=== PATIENT | male | born 1985 | race Two or more races ===

== ENCOUNTER 2024-10-15 19:07 | Inpatient (IN) | payer MEDICAID, OTHER ==
[~2024-10-15] VITALS: Ht 165.1 cm; Wt 79.1 kg
--- NOTE | 2024-10-15 19:22 | ED.PDOC ---
HPI (NEURO) HPI Comments BENITA: HPI: Poor Historian. HPI: 49 F who presents to the ED via EMS for chief complaint of seizure like activity - EMS states pt is at rehab facility in [place] for ETOH and pt was outside in patio - EMS states other patients noted pt suddenly exhibit shaking like movements and fell to the floor - EMS was called but prior to ED arrival, staff notes pt has 2x seizure like episodes lasting approx 2-4 minutes - EMS notes pt was in post-ictal state upon arrival but no noted oral trauma or incontinence was noted - pt had vitals checked with noted vitals : BP, 175/102, heart rate 132, rr 12 and 02 sat of 92% on room air - pt states he has been at facility for 14 days and pt and staff states pt has not had drink in 2x days - pt then recanted his statement and told EMS staff that he has not had a drink in 14 days - pt states at facility, he has received no medications for his withdrawal - pt now in the ED, otherwise alert and oriented x 4 and denies any other symptoms - pt has noted vitals of heart rate of 110, BP 149/98 and 02 sat Past Medical history: anxiety, depression, Past Surgical history: appendectomy Medications: Social History: Denies smoking, ETOH, and drug use. Allergies: NKDA REVIEW OF SYSTEMS: CONSTITUTIONAL: Denies acute: fever, diaphoresis, chills, generalized weakness. HEAD: Denies acute: headache, photophobia Eyes: Denies acute: Double vision, vision loss, eye pain, eye discharge. EARS: Denies acute: tinnitus, hearing loss, ear discharge, ear pain, THROAT: Denies acute: sore throat, swelling, difficulty swallowing , pain with swallowing, change in voice. NECK: Denies acute: neck pain, neck swelling, stiff neck. HEART: Denies acute : chest pain, palpitations, LUNGS: Denies acute: SOB, wheezing, cough, hemoptysis ABDOMEN: Denies acute: abdominal pain, Nausea, Vomiting, diarrhea, melena , hematemesis, hematochezia SKIN: Denies acute: rash, redness, lesions, itchiness. EXTREMITIES: Denies acute: calf pain, numbness, tingling, weakness, denies pain in extremity. Denies acute: Low back pain. Neuro: Denies acute: focal neurological deficit, motor or sensory focal neurological deficit, loss of bowel or bladder function, cauda equina like symptoms. : Denies acute: dysuria, hematuria, flank pain, increase in urinary frequency. PSYCH: Denies acute: hallucination, suicidal ideation, homicidal ideation. PHYSICAL EXAM: General: ----no----acute distress, awake and alert. Head: normocephalic, atraumatic. Neck: supple, trachea is midline, no swelling. Cervical spine: Palpation of the posterior midline of the cervical spine reveals no focal swelling, erythema, focal tenderness to palpation. Patient has normal range of motion. Throat: Normal phonation. No oral trauma. No obstruction, no swelling, no erythema, Eyes:, no erythema, no purulent discharge, no proptosis, no icterus. Heart: regular rate, regular rhythm, no significant murmur appreciated. Lungs: no apparent respiratory distress, Able to speak in full sentences. No wheezing, no rhonchi, no crackles. No stridors Clear to auscultation bilaterally. Abdomen: non tender to palpation, non distended, soft, no guarding, no rebound, + bowel sounds. Neuro: Awake, Alert, oriented to name, self, situation, follows commands, slight resting tremors GCS=15. Speech is normal. Skin: no petechia, no purpura, no cyanosis, non-pale, not jaundice. Lower extremities: --no - Pitting edema no deformity, no focal swelling, no calf TTP. Makes eye contact. moves all four extremities. Face: no apparent facial droop. PERRLA, EOM-I CN 2-12 are grossly intact, No nystagmus. No nuchal rigidity, Kernig's sign, Brudzinski's sign, no meningeal signs. ED COURSE: DISCLAIMER: This medical document was created using an electronic medical record system with voice recognition software and computerized dictation system. Although this document has been carefully reviewed, there might still be some phonetic and typographical errors. Occasional wrong-word or "sound-alike" substitutions may have occurred due to the inherent limitations of voice recognition software. These areas are purely typographical due to imperfections of the software programs and do not reflect any compromise in the patient's medical care. Please read the chart carefully and recognize, using context, where these substitutions have occurred. Chief Complaint: Withdrawal Time Seen by MD: 19:12 Reviewed Notes: Medications, Allergies Information Source: Patient, Emergency Med Personnel Mode of Arrival: EMS Was a procedure done? Was a procedure done?: No Differential Diagnosis (SZ) Seizure: Other (SEIZUREDDX include not limited to CVA, cerebellar ischemia/infarct, carotid stenosis, vertebral/carotid artery dissection,, vertebrobasillary insufficiency, Intracranial mass/infection/bleed, encephalopathy, elctrolyte abnormality, thyroid disease, multiple sclerosis, hypoglycemia, drug toxicity, cardiac arrhythmia, sub-theraputic anti-convulsion medications, known seizure disorder, pseudo-seizure.) X-Ray, Labs, Meds, VS Vital Signs Date Time Temp Pulse Resp B/P (MAP) Pulse Ox O2 Delivery O2 Flow Rate FiO2 10/15/24 19:40 110 15 94 Room Air* 0 21 10/15/24 19:17 98.0 110 15 149/98 (115) 94 98.0 Lab Test 10/15/24 21:21 10/15/24 21:10 10/15/24 20:37 10/15/24 19:28 Range/Units Lactic Acid Level 1.1 2.3 *H 0.4-2.0 mmol/L Urine Color Colorless Yellow Urine Clarity Clear Clear Urine pH 7.0 5.0-9.0 Urine Specific [place] 1.005 1.001-1.035 Urine Protein Negative Negative Urine Ketones Negative Negative Urine Blood Negative Negative /uL Urine Nitrite Negative Negative Urine Bilirubin Negative Negative Urine Urobilinogen Normal Negative mg/dL Urine Leukocyte Esterase Negative Negative /uL Urine RBC 1 0 - 3 /hpf Urine Microscopic WBC < 1 0-3 /HPF Urine Squamous Epithelial Cells None seen <5 /hpf Urine Bacteria None seen None Seen /hpf Urine Glucose Normal Normal mg/dL Urine Opiates Screen Neg NEGATIVE Urine Fentanyl Screen Neg NEGATIVE Urine Barbiturates Screen Neg NEGATIVE Urine Phencyclidine Screen Neg NEGATIVE Urine Amphetamines Screen Neg NEGATIVE Urine Benzodiazepines Screen Neg NEGATIVE Urine Cocaine Screen Neg NEGATIVE Urine Cannabinoids Screen Neg NEGATIVE Troponin I High Sensitivity 6 3 L </=54 ng/L White Blood Count 9.0 4.4-10.8 10^3/uL Red Blood Count 4.42 L 4.5-5.90 10^6/uL Hemoglobin 13.2 L 13.5-17.5 g/dL Hematocrit 39.7 L 41.0-53.0 % Mean Corpuscular Volume 89.9 80.0-100.0 fL Mean Corpuscular Hemoglobin 29.9 28.0-32.0 pg Mean Corpuscular Hemoglobin Concent 33.3 32.0-36.0 g/dL Red Cell Distribution Width 15.2 H 11.8-14.3 % Platelet Count 161 140-450 10^3/uL Mean Platelet Volume 7.7 6.9-10.8 fL Neutrophils (%) (Auto) 80.6 H 37.0-80.0 % Lymphocytes (%) (Auto) 11.0 10.0-50.0 % Monocytes (%) (Auto) 7.1 0.0-12.0 % Eosinophils (%) (Auto) 0.4 0.0-7.0 % Basophils (%) (Auto) 0.9 0.0-2.0 % Neutrophils # (Auto) 7.2 1.6-8.6 10 ^3/uL Lymphocytes # (Auto) 1.0 0.4-5.4 10 ^3/uL Monocytes # (Auto) 0.6 0-1.3 10 ^3/uL Eosinophils # (Auto) 0 0-0.8 10 ^3/uL Basophils # (Auto) 0.1 0-0.2 10 ^3/uL Nucleated Red Blood Cells 0.0 % Sodium Level 143 136-145 mmol/L Potassium Level 3.2 L 3.5-5.1 mmol/L Chloride Level 107 98-107 mmol/L Carbon Dioxide Level 25 20-31 mmol/L Anion Gap 11 5-15 Blood Urea Nitrogen 13 9-23 mg/dL Creatinine 0.76 0.700-1.30 mg/dL Glomerular Filtration Rate Calc 119 >90 mL/min BUN/Creatinine Ratio 17.1 10.0-20.0 Serum Glucose 154 H 74-106 mg/dL Calcium Level 9.6 8.7-10.4 mg/dL Magnesium Level 1.5 L 1.6-2.6 mg/dL Total Bilirubin 0.4 0.2-1.0 mg/dL Aspartate Amino Transferase (AST) 82 H 13-40 U/L Alanine Aminotransferase (ALT) 83 H 7-40 U/L Alkaline Phosphatase 90 46-116 U/L Total Protein 7.4 5.7-8.2 g/dL Albumin 4.7 3.2-4.8 g/dL Plasma/Serum Blood Alcohol < 3.0 <10 mg/dL [place] [id number] Ph: [phone] DIAGNOSTIC IMAGING Diagnostic Imaging Report : [id number] Signed PATIENT: VINDO MAXWELLT: [id number] UNIT: [id number] : 1985 LOC: ER ROOM / BED: / AGE / SEX: 39 / M ADM STATUS: REG ER SERVICE 19 ORDERING PHYSICIAN: OSWALD CHAVEZ DO PROCEDURE(s): HWOCT - HEAD WITHOUT CONTRAST REASON: seizure ORDER NUMBER(s): [id number], ACCESSION NUMBER(s): [id number] CLINICAL HISTORY: seizure TECHNIQUE: Helical scanning was performed of the head from the skull base to the vertex. Multiplanar reconstructions were performed. This exam was performed according to our departmental dose optimization program. Up-to-date CT equipment and radiation dose reduction techniques are utilized as appropriate. WID: COMPARISON: None FINDINGS: There is no acute intracranial hemorrhage, CT evidence of acute ischemic changes, mass effect, midline shift, or extra-axial fluid collection. Ventricles are within normal limits The imaged intraorbital structures are unremarkable The imaged paranasal sinuses are clear. The mastoid air cells are clear. The calvarium is intact. IMPRESSION: 1. NO ACUTE INTRACRANIAL FINDINGS ATED BY: MIREYA MCDERMOTT MD DICTATED DATE/TIME: 10/15/242110 SIGNED BY: MIREYA MCDERMOTT MD SIGNED DATE/TIME: 10/15/242110 CC: [address] [address] Ph: [phone] DIAGNOSTIC IMAGING Diagnostic Imaging Report : [id number] Signed PATIENT: VINOD MAXWELLT: [id number] UNIT: [id number] : 1985 LOC: ER ROOM / BED: / AGE / SEX: 39 / M ADM STATUS: REG ER SERVICE 19 ORDERING PHYSICIAN: OSWALD CHAVEZ DO PROCEDURE(s): CXRP - CHEST PORTABLE REASON: seizure ORDER NUMBER(s): [id number], ACCESSION NUMBER(s): [id number] CHEST RADIOGRAPH Indication: seizure Technique: Single frontal view of the chest was obtained Comparison: None FINDINGS: Lines and Tubes: None Lungs: No focal consolidation. Pleura: No effusion. No pneumothorax. Cardiomediastinal contours: Unremarkable Bones: No acute osseous abnormality. IMPRESSION: 1. No acute cardiopulmonary disease. HS:Y ATED BY: RICCI MCCLELLAN Jr., DO DICTATED DATE/TIME: 10/15/242109 SIGNED BY: RICCI MCCLELLAN Jr., DO SIGNED DATE/TIME: 10/15/242109 CC: Time of 1ST Reevaluation: 00:00 Reevaluation 1ST: N/A Patient Education/Counseling: Diagnosis, Treatment Family Education/Counseling: No Family Present Comments MDM: patient presented with the above HPI.---alcohol withdrawal seizure---workup was initiated. patient was found with the above mentioned diagnosis. the following medications were ordered: please refer to order lists of meds and tests obtained by myself Dr. Chavez. Patient ED course and VS have been stabilized. Patient has been reassessed in the ED and remained in a stable condition. Pertinent incidental findings were discussed with the patient and/or family. Patient/family voices understanding and is agreeable with plan. Patient has been observed in the ED adequate length of time to insure improvement/stability. Escalation of care considered: Consideration of escalation to observation or admission Patient was ADMITTED to the medicine team for further evaluation and treatment of their presentation. All the reports of any imaging studies that were ordered by myself were reviewed by myself. Departure 1 Departure Time of Disposition: 19:26 Impression: Primary Impression: Alcohol withdrawal seizure Additional Impressions: Hypomagnesemia Closed head injury Disposition: ADMITTED INPATIENT Admit to: Tele Condition: Guarded e-Prescriptions No Active Prescriptions or Reported Meds Discharged With: Self Critical Care Note Critical Care Time?: Yes (45 min-critical care time only) Stability Stability form required: No I personally scribed for OSWALD CHAVEZ DO ([email or web address]) on 10/15/24 at 19:22. Electronically submitted by [facility] ([facility] I personally scribed for OSWALD CHAVEZ DO ([email or web address]) on 10/15/24 at 19:46. Electronically submitted by Jade [facility] ([facility] I personally scribed for OSWALD CHAVEZ DO (FARVT) on 10/15/24 at 19:49. Electronically submitted by Jade [facility] ([facility]). I personally scribed for OSWALD CHAVEZ DO (FARVT) on 10/15/24 at 21:36. Electronically submitted by Jade Gray ([facility]). OSWALD CHAVEZ DO Oct 15, 2024 19:22
[2024-10-15] MEDS: LORazepam 2MG/ML-1ML VIAL IV ONE (19:31)
[2024-10-15] MEDS: SODIUM CHLORIDE 0.9% 1,000 ML IV ONE (19:32)
[2024-10-15 19:40] VITALS: PULSE 110; RESP 15; O2SAT 94
[2024-10-15 19:44] LABS: Hematocrit 39.7 % (41.0-53.0); Hemoglobin 13.2 g/dL (13.5-17.5); Mean Corpuscular Hemoglobin 29.9 pg (28.0-32.0); Mean Corpuscular Volume 89.9 fL (80.0-100.0); Nucleated Red Blood Cells % 0.0 %
[2024-10-15 20:05] LABS: Albumin 4.7 g/dL (3.2-4.8); Alkaline Phosphatase 90 U/L (46-116); Anion Gap 11 (5-15); BUN/Creatinine Ratio 17.1 (10.0-20.0); Blood Urea Nitrogen 13 mg/dL (9-23); Calcium 9.6 mg/dL (8.7-10.4); Carbon Dioxide 25 mmol/L (20-31); Sodium 143 mmol/L (136-145); Total Protein 7.4 g/dL (5.7-8.2)
[2024-10-15 20:06] LABS: Bilirubin, Total 0.4 mg/dL (0.2-1.0)
[2024-10-15 20:08] LABS: Alanine Aminotransferase 83 U/L (7-40); Chloride 107 mmol/L (98-107); Glucose 154 mg/dL (74-106); Magnesium 1.5 mg/dL (1.6-2.6); Potassium 3.2 mmol/L (3.5-5.1)
[2024-10-15 20:12] LABS: Lactic Acid w/Reflex 2.3 mmol/L (0.4-2.0)
[2024-10-15] MEDS: MAGNESIUM SULFATE 1GM/100ML 100 ML IV ONE (20:40)
[2024-10-15] MEDS: THIAMINE HCL 100 MG TAB PO ONE (20:40)
--- NOTE | 2024-10-15 21:13 | DVH ---
CHEST RADIOGRAPH Indication: seizure Technique: Single frontal view of the chest was obtained Comparison: None FINDINGS: Lines and Tubes: None Lungs: No focal consolidation. Pleura: No effusion. No pneumothorax. Cardiomediastinal contours: Unremarkable Bones: No acute osseous abnormality. IMPRESSION: 1. No acute cardiopulmonary disease. HS:Y
--- NOTE | 2024-10-15 21:14 | DVH ---
CLINICAL HISTORY: seizure TECHNIQUE: Helical scanning was performed of the head from the skull base to the vertex. Multiplanar reconstructions were performed. This exam was performed according to our departmental dose optimizat ion program. Up-to-date CT equipment and radiation dose reduction techniques are utilized as appropri ate. WID: COMPARISON: None FINDINGS: There is no acute intracranial hemorrhage, CT evidence of acute ischemic changes, mass effect, midlin e shift, or extra-axial fluid collection. Ventricles are within normal limits The imaged intraorbital structures are unremarkable The imaged paranasal sinuses are clear. The mastoid air cells are clear. The calvarium is intact. IMPRESSION: 1. NO ACUTE INTRACRANIAL FINDINGS
[2024-10-15 21:27] LABS: Urine Protein, UAD Negative (Negative)
[2024-10-15 21:40] LABS: Benzodiazephine Screen, Urine Neg (NEGATIVE)
[2024-10-15 21:44] LABS: Amphetamine Screen, Urine Neg (NEGATIVE); Barbiturate Scree,Urine Neg (NEGATIVE); Cannabinoid Screen, Urine Neg (NEGATIVE); Cocaine Screen, Urine Neg (NEGATIVE); Opiate Scree,Urine Neg (NEGATIVE); Phencyclidine Screen, Urine Neg (NEGATIVE)
[2024-10-15] MEDS ORDERED: NITROGLYCERIN 0.4 MG SL TAB SL PRN (23:00)
[2024-10-15] MEDS ORDERED: MORPHINE SULFATE INJ 2 MG/ml SYRG IV PRN (23:00)
[2024-10-15] MEDS ORDERED: LORazepam 2MG/ML-1ML VIAL IV PRN (23:00)
[2024-10-15] MEDS ORDERED: ONDANSETRON ODT 4 MG TAB PO PRN (23:00)
--- NOTE | 2024-10-15 23:01 | DVHHP2 ---
History of Present Illness History of Present Illness This is a 39-year-old male with past medical history of Alcohol withdrawal seizures, ETOH use disorder, Anxiety, Depression, Appendicectomy BIBEMS due to seizure activity. Patient currently on alcohol rehab enhancement program, as per EMS, surveillance manager of rehab program observed patient having experienced of seizure-like activity which persist approx. 2-4 minutes and had 2 episodes, r ehab staff member stated patient last drink was 2 days ago but patient stated his last drink was 15 days ago. Patient seen on bedside in ER, Pt stated he was playing ball with his dog and suddenly feeling stiffness right side of his body and become shaking of neck and then whole body eventually loss of consciousness associated with sweating, headache, palpitation. In postictal phase patient denies any involuntary loss of bowel or bladder control, tongue bite, recognize every one around him. Patient having similar symptoms 3-4 times within last 1 year's since started drinking alcohol. Denies any chest pain, SOB, cough, headache, abdominal pain, dysuria, nausea, vomiting. Past Medical history: anxiety, depression, Past Surgical history: appendectomy Medications: Unable to mention, [facility] pharmacy Social History: Denies smoking, ETOH, and drug use. Allergy: No known allergy PCP: Unknown Review of Systems Constitutional: Yes: Weakness; No: Fever, Chills, Sweats, Malaise, Other Eyes: No: Pain, Vision change, Conjunctivae inflammation, Eyelid inflammation, Other, Redness ENT: No: Ear pain, Ear discharge, Nose pain, Nose discharge, Nose congestion, Mouth pain, Mouth swelling, Throat pain, Throat swelling, Other Respiratory: No: Cough, Dry, Shortness of breath, SOB with excertion, Wheezing, Hemoptysis, Pleuritic Pain, Sputum, Wheezing, Other Cardiovascular: No: Chest Pain, Palpitations, Orthopnea, Paroxysmal Noc. Dyspnea, Edema, Lt Headedness, Other Gastrointestinal: No: Nausea, Vomiting, Abdominal Pain, Diarrhea, Constipation, Melena, Hematochezia, Other Genitourinary: No Dysuria, No Frequency, No Incontinence, No Hematuria, No Retention, No Other Musculoskeletal: No: other, neck pain, shoulder pain, arm pain, back pain, hand pain, leg pain, foot pain Skin: No: Rash, Lesions, Jaundice, Bruising, Other Neurological: No: Weakness, Numbness, Incoordination, Change in speech, Confusion, Seizures, Other Allergies: Coded Allergies: No Known Drug Allergy (Verified Allergy, Unknown, 10/15/24) Exam Vital Signs Vital Signs Date Time Temp Pulse Resp B/P (MAP) Pulse Ox O2 Delivery O2 Flow Rate FiO2 10/15/24 19:40 110 15 94 Room Air* 0 21 10/15/24 19:17 98.0 149/98 (115) 98.0 General Appearance: Alert, Oriented X3, Cooperative HEENT: Atraumatic, PERRLA, EOMI Respiratory: Clear to auscultation, Normal air movement Cardiovascular: Regular rate, Normal S1, Normal S2 Abdominal: Normal bowel sounds, Soft, No tenderness, No hepatospenomegaly Extremities: No cyanosis, No edema Skin: No rashes, No breakdown Neuro: Normal gait, Normal speech, Strength at 5/5 X4 ext, Normal tone, Sensation intact Labs/Xrays Labs Test 10/15/24 21:21 10/15/24 21:10 10/15/24 20:37 10/15/24 19:28 Range/Units Lactic Acid Level 1.1 0.4-2.0 mmol/L Urine Color Colorless Yellow Urine Clarity Clear Clear Urine pH 7.0 5.0-9.0 Urine Specific [place] 1.005 1.001-1.035 Urine Protein Negative Negative Urine Ketones Negative Negative Urine Blood Negative Negative /uL Urine Nitrite Negative Negative Urine Bilirubin Negative Negative Urine Urobilinogen Normal Negative mg/dL Urine Leukocyte Esterase Negative Negative /uL Urine RBC 1 0 - 3 /hpf Urine Microscopic WBC < 1 0-3 /HPF Urine Squamous Epithelial Cells None seen <5 /hpf Urine Bacteria None seen None Seen /hpf Urine Glucose Normal Normal mg/dL Urine Opiates Screen Neg NEGATIVE Urine Fentanyl Screen Neg NEGATIVE Urine Barbiturates Screen Neg NEGATIVE Urine Phencyclidine Screen Neg NEGATIVE Urine Amphetamines Screen Neg NEGATIVE Urine Benzodiazepines Screen Neg NEGATIVE Urine Cocaine Screen Neg NEGATIVE Urine Cannabinoids Screen Neg NEGATIVE Troponin I High Sensitivity 6 </=54 ng/L White Blood Count 9.0 4.4-10.8 10^3/uL Red Blood Count 4.42 L 4.5-5.90 10^6/uL Hemoglobin 13.2 L 13.5-17.5 g/dL Hematocrit 39.7 L 41.0-53.0 % Mean Corpuscular Volume 89.9 80.0-100.0 fL Mean Corpuscular Hemoglobin 29.9 28.0-32.0 pg Mean Corpuscular Hemoglobin Concent 33.3 32.0-36.0 g/dL Red Cell Distribution Width 15.2 H 11.8-14.3 % Platelet Count 161 140-450 10^3/uL Mean Platelet Volume 7.7 6.9-10.8 fL Neutrophils (%) (Auto) 80.6 H 37.0-80.0 % Lymphocytes (%) (Auto) 11.0 10.0-50.0 % Monocytes (%) (Auto) 7.1 0.0-12.0 % Eosinophils (%) (Auto) 0.4 0.0-7.0 % Basophils (%) (Auto) 0.9 0.0-2.0 % Neutrophils # (Auto) 7.2 1.6-8.6 10 ^3/uL Lymphocytes # (Auto) 1.0 0.4-5.4 10 ^3/uL Monocytes # (Auto) 0.6 0-1.3 10 ^3/uL Eosinophils # (Auto) 0 0-0.8 10 ^3/uL Basophils # (Auto) 0.1 0-0.2 10 ^3/uL Nucleated Red Blood Cells 0.0 % Sodium Level 143 136-145 mmol/L Potassium Level 3.2 L 3.5-5.1 mmol/L Chloride Level 107 98-107 mmol/L Carbon Dioxide Level 25 20-31 mmol/L Anion Gap 11 5-15 Blood Urea Nitrogen 13 9-23 mg/dL Creatinine 0.76 0.700-1.30 mg/dL Glomerular Filtration Rate Calc 119 >90 mL/min BUN/Creatinine Ratio 17.1 10.0-20.0 Serum Glucose 154 H 74-106 mg/dL Calcium Level 9.6 8.7-10.4 mg/dL Magnesium Level 1.5 L 1.6-2.6 mg/dL Total Bilirubin 0.4 0.2-1.0 mg/dL Aspartate Amino Transferase (AST) 82 H 13-40 U/L Alanine Aminotransferase (ALT) 83 H 7-40 U/L Alkaline Phosphatase 90 46-116 U/L Total Protein 7.4 5.7-8.2 g/dL Albumin 4.7 3.2-4.8 g/dL Plasma/Serum Blood Alcohol < 3.0 <10 mg/dL SEPSIS Sepsis Screen Date sepsis recognized/suspect: Oct 15, 2024 Time Sepsis recognized/suspect: 1909 Recent Procedure: No On Antibiotic Therapy: No Respiratory Rate >20: No Heart Rate >90: No Temp<36 C (96.8 F) or >38.3 C: No SBP <90 or MAP <65 mmHG: No New Acute Mental Status Change: No Is the patient on CPAP, BIPAP,: No Physician Orders [employer] Program Director (10/15/24 ) Chest Portable (10/15/24 19:20) Electrocardigram (10/15/24 19:20) Head Without Contrast (10/15/24 19:20) Seizure Precautions (10/15/24 ) Admit (10/15/24 22:51) Nitroglycerin Sublingual (Ntrostat Subli (10/15/24 23:00) Morphine Sulfate Injection (10/15/24 23:00) Oxygen By Nasal Cannula (10/15/24 22:51) Stat Ekg For Chest Pain (10/15/24 22:51) Notify Md Of Changes From Base (10/15/24 22:51) Superintendent Operations Division For 24 Hours (10/15/24 22:51) Emergency Dysrhythmia Protocol (10/15/24 22:51) Rhythm Strips Once Every Shift (10/15/24 22:51) Regular Diet (10/16/24 Breakfast) Lorazepam 2mg/Ml Inj (Ativan Inj) (10/15/24 23:00) Potassium Er Tablet (Klor-Con Tablet) (10/15/24 23:00) Ondansetron Po (Zofran Po) (10/15/24 23:00) Pantoprazole Tablet (Protonix Tablet) (10/16/24 06:00) Pantoprazole Tablet (Protonix Tablet) (10/15/24 23:00) Thiamine Tab (10/16/24 10:00) Folic Acid Tablet (10/16/24 10:00) Vital Signs Date Time Temp Pulse Resp B/P (MAP) Pulse Ox O2 Delivery O2 Flow Rate FiO2 10/15/24 19:40 110 15 94 Room Air* 0 21 10/15/24 19:17 98.0 110 15 149/98 (115) 94 98.0 Laboratory Tests Test 10/15/24 19:28 10/15/24 21:21 Lactic Acid Level 2.3 mmol/L (0.4-2.0) *H 1.1 mmol/L (0.4-2.0) White Blood Count 9.0 10^3/uL (4.4-10.8) Medications Medications Dose Ordered Sig/Salomón Route Start Time Stop Time Status Last Admin Dose Admin Chlordiazepoxide HCl 25 mg ONCE ONCE PO 10/15/24 19:30 10/15/24 19:31 DC 10/15/24 19:31 25 MG Lorazepam 1 mg ONCE ONCE IV 10/15/24 19:30 10/15/24 19:31 DC 10/15/24 19:31 1 MG Magnesium Sulfate/ Dextrose 100 ml @ 100 mls/hr ONCE ONCE IV 10/15/24 20:30 10/15/24 21:29 DC 10/15/24 20:40 100 MLS/HR Sodium Chloride 1,000 ml @ 1,000 mls/hr Q1H ONCE IV 10/15/24 19:30 10/15/24 20:29 DC 10/15/24 19:32 1,000 MLS/HR Thiamine HCl 100 mg ONCE ONCE PO 10/15/24 20:30 10/15/24 20:31 DC 10/15/24 20:40 100 MG Assessment/Plan Assessment/Plan # Alcohol withdrawal seizure -Patient BIBEMS due witness seizures and having h/o similar symptoms needed hospitalization -Received thiamine, magnesium, chlordiazepoxide, lorazepam, NSS in ER -Troponin x2, negative 3>6 -CT head without contrast- There is no acute intracranial hemorrhage, CT evidence of acute ischemic changes, mass effect, midline shift, or extra-axial fluid collection. -UA -negative -CXR- acute cardiopulmonary disease -Blood alcohol less than 3.0 -Magnesium level 1.5, supplemented in ER -Lactic acid 2.3>1.1 -Lorazepam 2 mg IV q.5min if seizures -started banana bag -Librium with tapering dose daily -Seizure precaution -Admission telemetry # ETOH use disorder currently on Alcohol enhancement program -Patient drinks daily, last drink 15 days ago as per patient -Rehab staff noticed last drink 2 days ago. # Anxiety and depression -Unable to mention home medication -Will call pharmacy tomorrow and start home medication ([facility] pharmacy-[place]) # Transaminitis -AST 82, ALT 83, T bili 0.4 -Monitor liver function. -ultrasound abdomen # Lactic acidosis -Lactic acid level 2.3> 1.1 #Hyomagnesemia -Mg++ level 1.5 -Patient received 1g IV . # Hypokalemia -Serum potassium level 3.2, supplemented with 40 mEq potassium -Monitor BMP Stephanie (RN in ER) work as a director stage. Diet: Regular GI prophylaxis: Pantoprazole 40 mg p.o. daily DVT prophylaxis: pt ambulating. Called girlfriend [phone] but unable to reach her. Goals of care discussions, more than 29 minute spent. Full code status. Case discussed with Dr. Cueva, Plan discussed with: Patient, Other (Nurse) My Orders Orders - GRACIELA RAHMAN RESIDENT Procedure Category Date Status Time Admit ADMIT 10/15/24 Transmitted 22:51 Nitroglycerin PHA 10/15/24 Logged Sublingual (Ntrostat 23:00 Morphine Sulfate PHA 10/15/24 Logged Injection 23:00 Oxygen By Nasal RT 10/15/24 Transmitted Cannula 22:51 Stat Ekg For Chest [facility] 10/15/24 In Process Pain 22:51 Notify Of Changes [facility] 10/15/24 In Process From Base 22:51 Superintendent Operations Division For [facility] 10/15/24 In Process 24 Hours 22:51 Emergency Dysrhythmia [facility] 10/15/24 In Process Protocol 22:51 Rhythm Strips Once [facility] 10/15/24 In Process Every Shift 22:51 Regular Diet DIET 10/16/24 Transmitted Breakfast Lorazepam 2mg/Ml Inj PHA 10/15/24 Logged (Ativan Inj) 23:00 Potassium Er Tablet PHA 10/15/24 Transmitted (Klor-Con Tablet) 23:00 Ondansetron Po PHA 10/15/24 Transmitted (Zofran Po) 23:00 Pantoprazole Tablet PHA 10/16/24 Transmitted (Protonix Tablet) 06:00 Pantoprazole Tablet PHA 10/15/24 Transmitted (Protonix Tablet) 23:00 Thiamine Tab PHA 10/16/24 Transmitted 10:00 Folic Acid Tablet PHA 10/16/24 Transmitted 10:00 Date of Service: Oct 15, 2024 Billing Provider: DARSHAN CUEVA MD Common Visit Codes: [id number] INP/OBS CARE (HIGH) Secondary Visit Codes: [id number] CARE PLAN 30 MINUTES GRACIELA RAHMAN RESIDENT Oct 15, 2024 23:01
[2024-10-15] MEDS: PANTOPRAZOLE 40 MG TAB PO ONE (23:50)
[2024-10-15] MEDS: POTASSIUM CHL 20 Meq TABLET PO ONE (23:50)
[2024-10-16] VITALS (7 sets, daily range): BP systolic 138–154; BP diastolic 79–98; PULSE 75–109; RESP 14–18; TEMP 97.9–98.7; O2SAT 95–99
[2024-10-16 06:00] LABS: Anion Gap 9 (5-15); Carbon Dioxide 27 mmol/L (20-31); Sodium 144 mmol/L (136-145)
[2024-10-16 06:02] LABS: Calcium 8.6 mg/dL (8.7-10.4); Chloride 108 mmol/L (98-107); Potassium 3.1 mmol/L (3.5-5.1)
[2024-10-16 06:06] LABS: BUN/Creatinine Ratio 12.3 (10.0-20.0); Glucose 83 mg/dL (74-106)
[2024-10-16 06:09] LABS: Blood Urea Nitrogen 8 mg/dL (9-23)
--- NOTE | 2024-10-16 07:52 | DVH ---
CLINICAL INFORMATION: TRANSAMINITIS. TECHNIQUE: Grayscale sonographic imaging of the right upper quadrant of the abdomen was performed, a ssisted by color Doppler techniques. COMPARISON: Ultrasound dated 09/17/2024. FINDINGS: The gallbladder wall measures 3.9 mm in thickness, mildly thickened. No stones are seen. Negative reported sonographic Loco's sign. The common bile duct is not visualized on this exam. The liver is enlarged, measuring up to 20.6 cm in craniocaudal dimension. Increased echogenicity of t he liver consistent with fatty infiltration. The pancreas is obscured by bowel gas. The right kidney measures 13.5 cm. There is no hydronephrosis. Right renal cortical echogenicity a nd cortical thickness are within normal limits. IMPRESSION: 1. Thickened gallbladder wall with no gallstones or other evidence to suggest acute cholecystitis. Co rrelate with clinical findings. 2. Hepatomegaly and hepatic steatosis.
[2024-10-16] MEDS: THIAMINE HCL 100 MG TAB PO SCH (11:03)
[2024-10-16] MEDS: FOLIC ACID 1 MG TAB PO SCH (11:04)
[2024-10-16 11:19] LABS: Alkaline Phosphatase 66 U/L (46-116); Anion Gap 9 (5-15); BUN/Creatinine Ratio 15.5 (10.0-20.0); Calcium 9.2 mg/dL (8.7-10.4); Carbon Dioxide 26 mmol/L (20-31); Sodium 144 mmol/L (136-145); Total Protein 6.7 g/dL (5.7-8.2)
[2024-10-16 11:20] LABS: Albumin 4.3 g/dL (3.2-4.8)
[2024-10-16 11:21] LABS: Bilirubin, Total 0.8 mg/dL (0.2-1.0)
[2024-10-16 11:24] LABS: Alanine Aminotransferase 106 U/L (7-40); Blood Urea Nitrogen 9 mg/dL (9-23); Chloride 109 mmol/L (98-107); Glucose 107 mg/dL (74-106); Magnesium 1.6 mg/dL (1.6-2.6); Potassium 3.5 mmol/L (3.5-5.1)
[2024-10-16] MEDS: POTASSIUM EFFERVESENT TAB 25 MEQ PO ONE ×2 (11:38→21:34)
--- NOTE | 2024-10-16 14:40 | DVHPNRES ---
Progress Note Date Seen: Oct 16, 2024 Resident Creating Document: TATISATINDER RESIDENT Medical Necessity Reason Pt with a Central, PICC or Fol: No (RN) Subjective Review of Systems History of Present Illness This is a 39-year-old male with past medical history of Alcohol withdrawal seizures, ETOH use disorder, Anxiety, Depression, Appendicectomy BIBEMS due to seizure activity. Patient currently on alcohol rehab enhancement program, as per EMS, project manager/design manager of rehab program observed patient having experienced of seizure-like activity which persist approx. 2-4 minutes and had 2 episodes, rehab staff member stated patient last drink was 2 days ago but patient stated his last drink was 15 days ago. Patient seen on bedside in ER, Pt stated he was playing ball with his dog and suddenly feeling stiffness right side of his body and become shaking of neck and then whole body eventually loss of consciousness associated with sweating, headache, palpitation. In postictal phase patient denies any involuntary loss of bowel or bladder control, tongue bite, recognize every one around him. Patient having similar symptoms 3-4 times within last 1 year's since started drinking alcohol. Denies any chest pain, SOB, cough, headache, abdominal pain, dysuria, nausea, vomiting. Rehab staff noticed last drink 2 days ago. Past Medical history: anxiety, depression, Past Surgical history: appendectomy Medications: Unable to mention, [facility] Social History: Smokes tobacco; alcohol abuse, transferred from rehab center; no illicit drugs Allergy: No known allergy PCP: Unknown 10/16 interval events: The patient was seen and examined at the bedside. Overnight events were reviewed. No new complaints reported. He did not experience any other episode of seizure Patient denies any chest pain, shortness of breath, dizziness, lightheadedness, nausea, vomiting or any other complaints today. Rest of the ROS is negative. Objective vital signs Vital Sign Date Time Temp Pulse Resp B/P (MAP) Pulse Ox O2 Delivery O2 Flow Rate FiO2 10/16/24 12:38 87 23 149/95 (113) 98 10/16/24 10:05 97.6 97.6 10/16/24 08:25 Room Air* 0 21 Total Intake and Output 10/15/24 10/15/24 10/16/24 15:00 23:00 07:00 Intake Total 1000 ml Balance 1000 ml medications Current Medications Medications Dose Ordered Sig/Salomón Route Start Time Stop Time Status Last Admin Dose Admin Nitroglycerin 0.4 mg Q5MINP PRN SL 10/15/24 23:00 Morphine Sulfate 2 mg Q30M PRN IV 10/15/24 23:00 Lorazepam 1 mg Q5MINP PRN IV 10/15/24 23:00 Ondansetron HCl 4 mg Q4HP PRN PO 10/15/24 23:00 Pantoprazole Sodium 40 mg DAILY@0600 PO 10/17/24 06:00 Thiamine HCl 100 mg DAILY PO 10/16/24 10:00 10/16/24 11:03 100 MG Folic Acid 1 mg DAILY PO 10/16/24 10:00 10/16/24 11:04 1 MG Folic Acid 1 mg/ Multivitamins 10 ml/Magnesium Sulfate 8 meq/ Thiamine HCl 100 mg/Dextrose 1,013.2 ml @ 0 mls/hr DAILY@1800 INJ 10/16/24 18:00 Chlordiazepoxide HCl 50 mg Q8HR PO 10/16/24 04:00 10/16/24 22:01 10/16/24 14:20 50 MG Chlordiazepoxide HCl 50 mg Q12HR PO 10/17/24 10:00 10/17/24 22:01 Chlordiazepoxide HCl 25 mg Q12HR PO 10/18/24 10:00 10/18/24 22:01 Chlordiazepoxide HCl 25 mg QAM PO 10/19/24 07:00 10/19/24 07:01 Examination Pt is lying on bed General Appearance: Alert, Oriented X3, Cooperative, Mild distress HEENT: Atraumatic, Mucous membranes moist/pink Respiratory: Clear to auscultation, Normal air movement, No added sounds Cardiovascular: Regular rate, Normal S1, Normal S2, No murmurs Abdominal/ : Active bowel sounds, Soft, no distention, no tenderness Extremities: No edema, Normal pulses, No tenderness/swelling Skin: No Significant rash, except past surgical scars Neuro: Normal speech, sensorimotor deficits none Psych/Mental Status: Mental status NL, Mood NL Nurse was there as tester sound during examination laboratory and microbiology Laboratory Tests 10/16/24 10:31 10/15/24 19:28 Test 10/16/24 10:31 Range/Units Serum Glucose 107 H 74-106 mg/dL Labs and/or images reviewed: Labs reviewed by me, Image(s) reviewed by me Problem List/Assessment/Plan Problem List/Assessment/Plan # Alcohol withdrawal seizure # ETOH use disorder currently on Alcohol enhancement program # Lactic acidosis likely from seizures - CIWA score 5 -CT head without contrast- There is no acute intracranial hemorrhage, CT evidence of acute ischemic changes, mass effect, midline shift, or extra-axial fluid collection. -UA -negative, CXR- acute cardiopulmonary disease, Blood alcohol less than 3.0 -Magnesium level 1.5, supplemented in ER -Lorazepam 2 mg IV q.5min if seizures -started banana bag -Librium with tapering dose daily -Seizure precaution -Admission telemetry # Anxiety and depression -Unable to mention home medication -to follow up with his psychiatrist and is on # Transaminitis likely alcohol induced -AST 82, ALT 83, T bili 0.4 -Monitor liver function. -ultrasound abdomen # Hyomagnesemia # Hypokalemia - monitor lab for now - repleting now # Tobacco and alcohol use disorder Counseled on cessation for 22 minutes including 12 minutes for tobacco use cessation GI prophylaxis: Pantoprazole DVT prophylaxis: Not indicated Diet: Regular Goals of care discussed with the patient for 20 minutes: Full code status Case discussed with Dr. Aguilar , patient and RN Plan discussed with: Patient, Other (RN) Addendum Addendum Addendum I was physically present for the dolan portions of the service provided to patient by THE RESIDENT. I have reviewed the documentation, discussed the case with resident and agree with the resident's documentation except as noted. Also the patient's clinical case was discussed with the patient's nurse. This medical document was created using an electronic medical record system with computerized dictation system. Although this document has been carefully reviewed, there might still be some phonetic and typographical errors. These areas are purely typographical due to imperfections of the software programs, and do not reflect any compromise in the patient's medical care. Late signature. Date of Service: Oct 16, 2024 Billing Provider: AKOSUA AGUILAR MD Common Visit Codes: [id number] INP/OBS CARE(HIGH) Secondary Visit Codes: [id number] CHNG SMOKING >10MIN (22 minutes for alcohol and tobacco use cessation including 12 minutes for tobacco use cessation), [id number] CARE PLAN 30 MINUTES (20 minutes) SATINDER DUFFY Oct 16, 2024 14:40 PA CHAVIS RESIDENT Oct 16, 2024 17:49 AKOSUA AGUILAR MD Oct 17, 2024 13:20
[2024-10-16] MEDS ORDERED: FOLIC ACID 1 MG, MULTIPLE VITAMIN 10 ML, MAGNESIUM SULF SDV 50% 8 MEQ, THIAMINE INJ 100... INJ SCH (18:00)
[2024-10-16] MEDS: MAGNESIUM SULFATE 1GM/100ML 100 ML IV SCH ×2 (19:08→21:49)
[2024-10-16] MEDS: FOLIC ACID 1 MG, MULTIPLE VITAMIN 10 ML, MAGNESIUM SULF SDV 50% 8 MEQ, THIAMINE INJ 100... INJ SCH (23:40)
[2024-10-17] VITALS (7 sets, daily range): BP systolic 108–157; BP diastolic 49–104; PULSE 79–110; RESP 16–18; TEMP 98.2–99.3; O2SAT 97–99
[2024-10-17] MEDS: PANTOPRAZOLE 40 MG TAB PO SCH (05:36)
[2024-10-17 08:06] LABS: Anion Gap 10 (5-15); Carbon Dioxide 27 mmol/L (20-31); Chloride 106 mmol/L (98-107); Potassium 3.7 mmol/L (3.5-5.1); Sodium 143 mmol/L (136-145)
[2024-10-17 08:07] LABS: Calcium 9.7 mg/dL (8.7-10.4)
[2024-10-17 08:12] LABS: BUN/Creatinine Ratio 15.8 (10.0-20.0); Glucose 99 mg/dL (74-106)
[2024-10-17 08:14] LABS: Blood Urea Nitrogen 9 mg/dL (9-23)
[2024-10-17 10:19] LABS: Hematocrit 38.4 % (41.0-53.0); Hemoglobin 12.7 g/dL (13.5-17.5); Mean Corpuscular Hemoglobin 30.1 pg (28.0-32.0); Mean Corpuscular Volume 90.9 fL (80.0-100.0); Nucleated Red Blood Cells % 0.0 %
--- NOTE | 2024-10-17 13:20 | DVHDSRES ---
Discharge Summary Date of Admission Resident Creating Document: SATINDER DUFFY Oct 15, 2024 at 22:51 Date of Discharge: Oct 17, 2024 Admitting Diagnosis Seizure-like activities Labs/Diagnostic Data: Laboratory Results Test 10/17/24 10:00 10/17/24 05:30 10/16/24 10:31 10/16/24 04:57 White Blood Count 7.4 10^3/uL (4.4-10.8) Red Blood Count 4.22 10^6/uL (4.5-5.90) Hemoglobin 12.7 g/dL (13.5-17.5) Hematocrit 38.4 % (41.0-53.0) Mean Corpuscular Volume 90.9 fL (80.0-100.0) Mean Corpuscular Hemoglobin 30.1 pg (28.0-32.0) Mean Corpuscular Hemoglobin Concent 33.1 g/dL (32.0-36.0) Red Cell Distribution Width 15.4 % (11.8-14.3) Platelet Count 181 10^3/uL (140-450) Mean Platelet Volume 7.8 fL (6.9-10.8) Neutrophils (%) (Auto) 63.7 % (37.0-80.0) Lymphocytes (%) (Auto) 21.1 % (10.0-50.0) Monocytes (%) (Auto) 11.4 % (0.0-12.0) Eosinophils (%) (Auto) 1.4 % (0.0-7.0) Basophils (%) (Auto) 2.4 % (0.0-2.0) Neutrophils # (Auto) 4.7 10 ^3/uL (1.6-8.6) Lymphocytes # (Auto) 1.6 10 ^3/uL (0.4-5.4) Monocytes # (Auto) 0.8 10 ^3/uL (0-1.3) Eosinophils # (Auto) 0.1 10 ^3/uL (0-0.8) Basophils # (Auto) 0.2 10 ^3/uL (0-0.2) Nucleated Red Blood Cells 0.0 % Sodium Level 143 mmol/L (136-145) Potassium Level 3.7 mmol/L (3.5-5.1) Chloride Level 106 mmol/L (98-107) Carbon Dioxide Level 27 mmol/L (20-31) Anion Gap 10 (5-15) Blood Urea Nitrogen 9 mg/dL (9-23) Creatinine 0.57 mg/dL (0.700-1.30) Glomerular Filtration Rate Calc 130 mL/min (>90) BUN/Creatinine Ratio 15.8 (10.0-20.0) Serum Glucose 99 mg/dL (74-106) Calcium Level 9.7 mg/dL (8.7-10.4) Magnesium Level 1.6 mg/dL (1.6-2.6) Total Bilirubin 0.8 mg/dL (0.2-1.0) Aspartate Amino Transferase (AST) 110 U/L (13-40) Alanine Aminotransferase (ALT) 106 U/L (7-40) Alkaline Phosphatase 66 U/L (46-116) Total Protein 6.7 g/dL (5.7-8.2) Albumin 4.3 g/dL (3.2-4.8) Hemoglobin A1c 6.1 % A1C (<5.7) Vitamin B12 Level 400 pg/mL (211-911) Folic Acid 13.54 ng/mL (>5.38) Thyroid Stimulating Hormone (TSH) 1.17 uIU/mL (0.55-4.78) Test 10/15/24 21:21 10/15/24 21:10 10/15/24 20:37 10/15/24 19:28 Lactic Acid Level 1.1 mmol/L (0.4-2.0) Urine Color Colorless (Yellow) Urine Clarity Clear (Clear) Urine pH 7.0 (5.0-9.0) Urine Specific [place]stein 1.005 (1.001-1.035) Urine Protein Negative (Negative) Urine Ketones Negative (Negative) Urine Blood Negative /uL (Negative) Urine Nitrite Negative (Negative) Urine Bilirubin Negative (Negative) Urine Urobilinogen Normal mg/dL (Negative) Urine Leukocyte Esterase Negative /uL (Negative) Urine RBC 1 /hpf (0 - 3) Urine Microscopic WBC < 1 /HPF (0-3) Urine Squamous Epithelial Cells None seen /hpf (<5) Urine Bacteria None seen /hpf (None Seen) Urine Glucose Normal mg/dL (Normal) Urine Opiates Screen Neg (NEGATIVE) Urine Fentanyl Screen Neg (NEGATIVE) Urine Barbiturates Screen Neg (NEGATIVE) Urine Phencyclidine Screen Neg (NEGATIVE) Urine Amphetamines Screen Neg (NEGATIVE) Urine Benzodiazepines Screen Neg (NEGATIVE) Urine Cocaine Screen Neg (NEGATIVE) Urine Cannabinoids Screen Neg (NEGATIVE) Troponin I High Sensitivity 6 ng/L (</=54) Plasma/Serum Blood Alcohol < 3.0 mg/dL (<10) Other Laboratory Tests 10/17/24 10:00 10/17/24 05:30 Brief Hx & Hospital Course: This is a 39-year-old male with past medical history of Alcohol withdrawal seizures, ETOH use disorder, Anxiety, Depression, Appendicectomy BIBEMS due to seizure activity. Patient currently on alcohol rehab enhancement program, as per EMS, manager financial of rehab program observed patient having experienced of seizure-like activity which persist approx. 2-4 minutes and had 2 episodes, rehab staff member stated patient last drink was 2 days ago but patient stated his last drink was 15 days ago. Patient seen on bedside in ER, Pt stated he was playing ball with his dog and suddenly feeling stiffness right side of his body and become shaking of neck and then whole body eventually loss of consciousness associated with sweating, headache, palpitation. In postictal phase patient denies any involuntary loss of bowel or bladder control, tongue bite, recognize every one around him. Patient having similar symptoms 3-4 times within last 1 year's since started drinking alcohol. Denies any chest pain, SOB, cough, headache, abdominal pain, dysuria, nausea, vomiting. Rehab staff noticed last drink 2 days ago. The patient's initial CIWA score was 5. CT head without contrast revealed no acute intracranial hemorrhage or acute ischemic change or no acute findings. Urinalysis negative. Chest x-ray revealed no acute cardiopulmonary disease. Magnesium level was 1.5 which was supplemented. Lorazepam 2 mg was given for prophylactic seizure preventions. Chlordiazepoxide tapering dose daily was being given. All types of precaution for seizures were taken. He was admitted on telemetry. Likely alcohol induced transaminitis was noted, for which we will closely monitor the labs. Patient condition was improved. Advised to follow up with healthy lifestyle modifications including diet and exercise. Discharge plan was discussed with the patient and patient verbalized understanding. During the time of discharge, the patient was hemodynamically stable, and no seizures reported since admission. CIWA score of 2. The patient was advised to follow up with the discharge clinic in a week. Physical exam on the day of discharge: General Appearance: Alert, Oriented X3, Cooperative, no distress HEENT: Atraumatic, Mucous membranes moist/pink Respiratory: Clear to auscultation, Normal air movement, No added sounds Cardiovascular: Regular rate, Normal S1, Normal S2, No murmurs Abdominal/ : Active bowel sounds, Soft, no distention, no tenderness Extremities: No edema, Normal pulses, No tenderness/swelling Skin: No Significant rash, except past surgical scars Neuro: Normal speech, sensorimotor deficits none Psych/Mental Status: Mental status NL, Mood NL Nurse was there as proration clerk during examination Counseled for 22 minutes on alcohol and tobacco use cessation including 12 minutes on tobacco use cessation during discharge. Discussed with Dr. Aguilar Operations or Procedures Ultrasound: Thickened gallbladder wall with no gallstones or other evidence to suggest acute cholecystitis. Correlate with clinical findings. Hepatomegaly and hepatic steatosis. Chest x-ray: No acute cardiopulmonary findings Head CT without contrast: No acute findings. Condition at Discharge: Stable Final Diagnosis/Problems List Alcohol withdrawal seizure Alcohol use disorder currently on alcohol enhancement program Lactic acidosis likely from seizure Anxiety and depression Transaminitis likely alcohol induced Hypomagnesemia Hypokalemia Discharge Disposition: Home Discharge Instruct/Medications Diet: Regular Activity: No Restrictions, As Tolerated Follow Up/Referral: Follow-up in a week at discharge clinic Medications: Continue home medications No Active Prescriptions or Reported Meds Discharge Statement: "Patient was advised to return to the ER or call 911 if any headaches, dizziness, shortness of breath, chest pain, abdominal pain, bleeding, fevers, or worsening of medical condition. Patient was counseled about treatment plan, medications, possible side effects, patientverbalized understanding. All questions were answered to the best of my ability. This discharge took greater then 30 minutes in planning, reviewing documentation, counseling the patient, and discussing with other team members." ASSESSMENT ASSESSMENT Assessment All withdrawal seizure Alcohol use disorder currently on and call enhancement program Lactic acidosis likely from seizure Anxiety and depression Transaminitis likely alcohol induced Hypomagnesemia Hypokalemia Addendum Addendum Addendum I was physically present for the dolan portions of the service provided to patient by THE RESIDENT. I have reviewed the documentation, discussed the case with resident and agree with the resident's documentation except as noted. Also the patient's clinical case was discussed with the patient's nurse. This medical document was created using an electronic medical record system with computerized dictation system. Although this document has been carefully reviewed, there might still be some phonetic and typographical errors. These areas are purely typographical due to imperfections of the software programs, and do not reflect any compromise in the patient's medical care. Late signature. Date of Service: Oct 17, 2024 Billing Provider: AKOSUA AGUILAR MD Common Visit Codes: 41246-UIS/OBS DISCH DAY >30min Secondary Visit Codes: 10210-UTPYH CHNG SMOKING >10MIN (22 minutes on alcohol and tobacco use cessation including 12 minutes on tobacco use cessation) SATINDER DUFFY RESIDENT Oct 17, 2024 13:20 PA CHAVIS RESIDENT Oct 17, 2024 15:29 AKOSUA AGUILAR MD Oct 18, 2024 14:18
== END 2024-10-17 18:36 | disposition home or self-care (01) | DRG 53 ==
LOC: ER 19:07 → EDBD 19:07 → OVERFLOW 22:51 → TELE-WESTW 10-16 15:11
PROVIDERS: ADMIT Internal Medicine; ATTEND Emergency Medicine
DX: G40.89 Other seizures (principal); E87.20 Acidosis, unspecified; S09.8XXA Other specified injuries of head, initial encounter; F10.939 Alcohol use, unspecified with withdrawal, unspecified; F32.A Depression, unspecified; E87.6 Hypokalemia; E83.42 Hypomagnesemia; F41.9 Anxiety disorder, unspecified; R74.01 Elevation of levels of liver transaminase levels; Z90.49 Acquired absence of other specified parts of digestive tract; X58.XXXA Exposure to other specified factors, initial encounter; Y93.89 Activity, other specified; Y92.89 Other specified places as the place of occurrence of the external cause; Y99.8 Other external cause status
CPT/HCPCS: 36415; 70450; 71045; 76705; 80048; 80053; 80307; 80320; 81001; 82607; 82746; 83036; 83605; 83735; 84443; 84484; 85025; 96361; 96365; G0378